=== PATIENT | female | born 1985 | race Caucasian/White ===

== ENCOUNTER 2020-06-17 09:52 | Emergency (ER) | payer OTHER ==
[~2020-06-17] VITALS: Ht 162.6 cm; Wt 88.5 kg
[2020-06-17 09:54] VITALS: BP 142/85
--- NOTE | 2020-06-17 10:00 | NUR ---
Patient ambulated to bed 4. RN evaluating patient at bedside.
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
[2020-06-17 10:20] VITALS: BP 140/82
--- NOTE | 2020-06-17 10:20 | NUR ---
Patient discharged with v/s stable. Written and verbal after care instructions given and explained. Patient verbalized understanding. Ambulatory with steady gait. All questions addressed prior to discharge. Advised to follow up with PMD.
== END 2020-06-17 10:20 | disposition home or self-care (01) ==
LOC: MED 09:52
DX: T78.40XA Allergy, unspecified, initial encounter (principal); E11.9 Type 2 diabetes mellitus without complications; X58.XXXA Exposure to other specified factors, initial encounter
CPT/HCPCS: 99281